=== PATIENT | female | born 1990 | race Caucasian/White ===

== ENCOUNTER → 2023-12-07 13:49 | Outpatient (REF) | payer BC, SELFPAY | LOC: RAD 13:49 | PROVIDERS: ATTENDING PHYSICIAN Internal Medicine; FAMILY PHYSICIAN Family Medicine | DX: R19.8 Other specified symptoms and signs involving the digestive system and abdomen (principal); R10.30 Lower abdominal pain, unspecified | CPT/HCPCS: 74019 ==

== ENCOUNTER → 2025-02-11 13:27 | Outpatient (REF) | payer BC, SELFPAY | LOC: MRI 3T 13:27 | PROVIDERS: ATTENDING PHYSICIAN Orthopaedic Surgery Hand Surgery; FAMILY PHYSICIAN Family Medicine | DX: M25.532 Pain in left wrist (principal) | CPT/HCPCS: 25246; 73115; 73222 ==